=== PATIENT | female | born 1945 | race Caucasian/White ===

== ENCOUNTER → 2020-08-28 10:15 | Outpatient (CLI) | payer MEDICARE, SELFPAY ==
--- NOTE | ~2020-08-28 | MM_ITS ---
EXAMINATION: MM screening [facility] BI w maegan HISTORY: Screening TECHNIQUE: Craniocaudal and mediolateral oblique 3-D tomosynthesis images were obtained and synthetic 2-D images were generated. CAD analysis was submitted and interpreted. COMPARISON: No prior mammogram is available for comparison at this institution. BREAST PARENCHYMAL COMPOSITION: The breasts are heterogeneously dense, which may obscure small masses . FINDINGS: There is no evidence of suspicious mass, calcification, or architectural distortion to sugg est malignancy in either breast. There has been no suspicious interval change. IMPRESSION: 1. No mammographic evidence of malignancy. 2. Recommend routine screening mammography in one year. BI-RADS Category 1: Negative Reviewed, dictated and finalized at location A. 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
--- NOTE | ~2020-08-28 | DEXA_ITS ---
Bone Density Report Name: Gwendolyn Isaacs Age: 75 Sex: Female Ethnicity: White Date of : 1945 Indication: postmenopausal; screening for osteoporosis; Referring Provider: Nel, Carolee Christensen Study: Bone densitometry was performed. Exam Date: August 28, 2020 Accession number: [id number] Bone Density: Region BMD T-score Z-score Classification AP Spine (L1-L4) 1.015 -0.3 2.1 Normal Femoral Neck (Left) 0.660 -1.7 0.3 Osteopenia Total Hip (Left) 0.818 -1.0 0.7 Normal Femoral Neck (Right) 0.664 -1.7 0.4 Osteopenia Total Hip (Right) 0.848 -0.8 1.0 Normal Total Hip Mean 0.833 -0.9 0.9 Normal World Health Organization criteria for BMD impression classify patients as: Normal (T-score at or above -1.0), Osteopenia (T-score between -1.0 and -2.5), or Osteoporosis (T-score at or below -2.5). 10-year Fracture Risk(1): Major Osteoporotic Fracture 12% Hip Fracture 2.6% Reported Risk Factors: [place] (), Neck BMD=0.660, BMI=26.4 (1) FRAX(R) Version 3.08. Fracture probability calculated for an untreated patient. Fracture probability may be lower if the patient has received treatment. Previous Exams: Region Exam Age BMD T-score BMD Change BMD Change Date g/cm2 vs Baseline vs Previous AP Spine(L1-L4) 08/28/2020 75 1.015 -0.3 -0.053 0.001 05/21/2016 71 1.014 -0.3 -0.055 0.004 03/21/2014 69 1.010 -0.3 -0.059 -0.013 01/21/2012 66 1.023 -0.2 -0.046 0.033* 11/28/2009 64 0.989 -0.5 -0.080 0.005 05/04/2007 62 0.984 -0.6 -0.085 -0.085 04/24/2004 59 1.069 0.2 Total Hip(Left) 08/28/2020 75 0.818 -1.0 -0.055 -0.020 05/21/2016 71 0.838 -0.9 -0.036 0.036* 03/21/2014 69 0.802 -1.2 -0.072 -0.010 01/21/2012 66 0.811 -1.1 -0.062 -0.053* 11/28/2009 64 0.864 -0.6 -0.010 0.029* 05/04/2007 62 0.835 -0.9 -0.039 -0.039 04/24/2004 59 0.874 -0.6 Total Hip(Right) 08/28/2020 75 0.848 -0.8 -0.060 -0.023 05/21/2016 71 0.871 -0.6 -0.037 -0.042* 03/21/2014 69 0.912 -0.2 0.005 0.040* 01/21/2012 66 0.872 -0.6 -0.035 -0.047* 11/28/2009 64 0.919 -0.2 0.011 0.033* 05/04/2007 62 0.885 -0.5 -0.022 -0.022 04/24/2004 59 0.908 -0.3 *Denotes significance at 95% confidence
== END ==
PROVIDERS: PCP Family Medicine; Visit Provider Nurse Practitioner Family
DX: Z12.31 Encounter for screening mammogram for malignant neoplasm of breast (principal); Z78.0 Asymptomatic menopausal state; M85.852 Other specified disorders of bone density and structure, left thigh; M85.851 Other specified disorders of bone density and structure, right thigh
CPT/HCPCS: 77063; 77067; 77080

== ENCOUNTER → 2022-03-26 11:38 | Outpatient (CLI) | payer MEDICARE, SELFPAY ==
--- NOTE | ~2022-03-26 | MM_ITS ---
EXAMINATION: MM screening [facility] BI w maegan HISTORY: Screening mammogram TECHNIQUE: Craniocaudal and mediolateral oblique 3-D tomosynthesis images were obtained and synthetic 2-D images were generated. CAD analysis was submitted and interpreted. COMPARISON: 08/28/2020, 05/21/2016, 03/25/2015 BREAST PARENCHYMAL COMPOSITION: The breasts are heterogeneously dense, which may obscure small masses . FINDINGS: There is no suspicious mass, calcification, or architectural distortion to suggest malignan cy in either breast. There has been no suspicious interval change. IMPRESSION: 1. No mammographic evidence of malignancy. 2. Recommend routine screening mammography in one year. BI-RADS Category 1: Negative Reviewed, dictated and finalized at location A.
== END ==
PROVIDERS: PCP Family Medicine; Visit Provider Nurse Practitioner Family
DX: Z12.31 Encounter for screening mammogram for malignant neoplasm of breast (principal)
CPT/HCPCS: 77063; 77067